=== PATIENT | female | born 1975 | race Caucasian/White ===

== ENCOUNTER 2017-05-24 17:40 | Emergency (ER) | payer OTHER, MEDICAID ==
[~2017-05-24] VITALS: Ht 170.2 cm; Wt 82.3 kg
[2017-05-24 17:43] VITALS: BP 120/78
[2017-05-24] MEDS ORDERED: DEXAMETHASONE 4 MG TABLET ONE (18:26)
== END 2017-05-24 19:38 | disposition home or self-care (01) ==
LOC: ED 19:32
DX: S83.411A Sprain of medial collateral ligament of right knee, initial encounter (principal); E11.9 Type 2 diabetes mellitus without complications; W17.89XA Other fall from one level to another, initial encounter; Y93.89 Activity, other specified; Y92.89 Other specified places as the place of occurrence of the external cause; Y99.8 Other external cause status
CPT/HCPCS: 99284

== ENCOUNTER 2017-12-05 09:31 | Emergency (ER) | payer MEDICAID, OTHER ==
[~2017-12-05] VITALS: Ht 170.2 cm; Wt 89.8 kg
[2017-12-05 10:38] VITALS: BP 124/91
[2017-12-05] MEDS ORDERED: LEVO175T36 PO (10:38)
[2017-12-05] MEDS ORDERED: METF500T4 PO (10:38)
[2017-12-05] MEDS ORDERED: SODIUM CHLORIDE FLUSH 10ML SYR IVF ONE (11:00)
[2017-12-05] MEDS ORDERED: ASPIRIN 81 MG TABLET CHEW PO ONE (11:00)
[2017-12-05] MEDS ORDERED: ASPIRIN 81 MG TABLET CHEW ONE (11:06)
[2017-12-05 11:08] LABS: BASOPHILS # (AUTO) 0.07 x10^3/uL (0-0.1); BASOPHILS % (AUTO) 1 % (0-1); EOSINOPHILS % (AUTO) 1 % (1-7); LYMPHOCYTES # (AUTO) 1.88 x10^3/uL (1-3.4); LYMPHOCYTES % (AUTO) 27 % (22-44); MD NO; MEAN CORPUSCULAR HEMOGLOBIN 31.8 pg (27.0-34.8); MEAN CORPUSCULAR HGB CONC 34.2 g/dL (32.4-35.8); MEAN CORPUSCULAR VOLUME 93.1 fL (80-100); MEAN PLATELET VOLUME 8.5 fL (7.4-10.4); MONOCYTES # (AUTO) 0.45 x10^3/uL (0.2-0.8); MONOCYTES % (AUTO) 6 % (2-9); NEUTROPHILS # (AUTO) 4.51 x10^3/uL (1.8-6.8); NEUTROPHILS % (AUTO) 64 % (42-75); PLATELET COUNT 258 x10^3/uL (130-400); RED CELL DISTRIBUTION WIDTH 12.5 % (9.6-15.2)
[2017-12-05 11:20] LABS: ALANINE AMINOTRANSFERASE 49 U/L (12-78); ALBUMIN 3.8 g/dL (3.4-5.0); ANION GAP 7 mmol/L (5-15); CALCIUM 8.2 mg/dL (8.5-10.1); CHLORIDE 106 mmol/L (98-107)
[2017-12-05 11:25] LABS: ALKALINE PHOSPHATASE 54 U/L (45-117); BILIRUBIN,TOTAL 0.5 mg/dL (0.2-1.0); TOTAL PROTEIN 7.2 g/dL (6.4-8.2); TROPONIN I < 0.015 ng/mL (0.000-0.045)
[2017-12-05] MEDS ORDERED: LORazepam 2 MG/ML, 1ML IVPush ONE (13:00)
== END 2017-12-05 13:16 | disposition home or self-care (01) ==
LOC: ED 12:22
DX: R07.89 Other chest pain (principal); G44.219 Episodic tension-type headache, not intractable; E11.9 Type 2 diabetes mellitus without complications; Z82.49 Family history of ischemic heart disease and other diseases of the circulatory system; Z98.84 Bariatric surgery status
CPT/HCPCS: 36415; 70450; 71045; 80053; 83690; 84484; 84703; 85025; 85379; 93005; 99285

== ENCOUNTER → 2018-07-31 | Outpatient (CLI) | payer OTHER ==
[~2018-07-31] MED LIST: ATOR20TA9 PO; CYAN10002 INJ; LEVO175T36 PO; LEVO175T5 PO; LIRA0.6P INJ; METF500T17 PO; PHEN15CA2 PO; VITA1TAB86 PO
[2018-07-31 09:25] LABS: ALANINE AMINOTRANSFERASE 84 U/L (12-78); ALBUMIN 3.8 g/dL (3.4-5.0); ANION GAP 5 mmol/L (5-15); CALCIUM 8.4 mg/dL (8.5-10.1); CHLORIDE 105 mmol/L (98-107); CREATININE 0.84 mg/dL (0.55-1.02)
[2018-07-31 09:28] LABS: ALKALINE PHOSPHATASE 68 U/L (45-117); BILIRUBIN,TOTAL 0.4 mg/dL (0.2-1.0); TOTAL PROTEIN 7.1 g/dL (6.4-8.2)
== END | disposition home or self-care (01) ==
LOC: STAR 08:07
PROVIDERS: ATTEND Surgery
DX: Z01.818 Encounter for other preprocedural examination (principal)
CPT/HCPCS: 36415; 80053; 93005

== ENCOUNTER 2018-08-05 06:55 | Day surgery (SDC) | payer OTHER ==
[~2018-08-05] VITALS: Ht 170.2 cm; Wt 84.0 kg
[~2018-08-05 06:55] MED LIST changes: +BUPIVACAINE/PF-EPI 0.5% 1:200K ONE
[2018-08-05] MEDS ORDERED: LACTATED RINGERS 1,000 ML IV SCH (07:10)
[2018-08-05 07:25] VITALS: BP 120/80
[2018-08-05] MEDS ORDERED: GABAPENTIN 300 MG CAPSULE PO ONE (07:30)
[2018-08-05] MEDS ORDERED: ACETAMINOPHEN 500 MG TABLET PO ONE (07:30)
[2018-08-05] MEDS ORDERED: ONDANSETRON ODT 8 MG PO ONE (07:30)
[2018-08-05 07:55] LABS: HCG UR SG 1.027 (1.003-1.030)
[2018-08-05] MEDS ORDERED: LIDOCAINE-MPF 2% ,5ML ONE (08:29)
[2018-08-05] MEDS ORDERED: PROPOFOL 10 MG/ML, 20ML ONE (08:29)
[2018-08-05] MEDS ORDERED: FENTANYL PF 100 MCG/2ML ONE ×3 (08:29→11:12)
[2018-08-05] MEDS ORDERED: DEXAMETHASONE 4 MG/ML, 1ML ONE ×2 (08:29)
[2018-08-05] MEDS ORDERED: MIDAZOLAM 1 MG/ML, 2ML ONE (08:29)
[2018-08-05] MEDS ORDERED: SUCCINYLCHOLINE 20 MG/ML, 10ML ONE (08:29)
[2018-08-05] MEDS ORDERED: MORPHINE SULFATE 4 MG/ML, 1ML IVPush PRN (09:30)
[2018-08-05] MEDS ORDERED: HYDROmorphone 1 MG/ML, 1ML IV PRN (09:30)
[2018-08-05] MEDS ORDERED: MIDAZOLAM 1 MG/ML, 2ML IV PRN (09:30)
[2018-08-05] MEDS ORDERED: LABETALOL 5MG/ML, 20ML IV PRN (09:30)
[2018-08-05] MEDS ORDERED: ALBUTEROL SULFATE 2.5 MG/3 ML NPPB PRN (09:30)
[2018-08-05] MEDS ORDERED: OXYcodone 5 MG/5 ML ORAL.SOL UDC PO PRN (09:30)
[2018-08-05] MEDS ORDERED: LORazepam 2 MG/ML, 1ML IVPush PRN (09:30)
[2018-08-05] MEDS ORDERED: METOPROLOL 1 MG/ML, 5ML IV PRN (09:30)
[2018-08-05] MEDS ORDERED: hydrALAzine 20 MG/ML, 1ML IV PRN (09:30)
[2018-08-05] MEDS ORDERED: MEPERIDINE/PF 25MG/0.5ML IVPush PRN (09:30)
[2018-08-05] MEDS ORDERED: OXYcodone 5 MG/5 ML ORAL.SOL UDC ONE (11:03)
[2018-08-05] MEDS ORDERED: LORazepam 2 MG/ML, 1ML ONE (11:03)
[2018-08-05] MEDS: FENTANYL PF 100 MCG/2ML IV PRN ×2 (11:15→11:55)
== END 2018-08-05 14:30 | disposition home or self-care (01) ==
LOC: OUT 06:55
PROVIDERS: ATTEND Surgery
DX: D34 Benign neoplasm of thyroid gland (principal); E04.1 Nontoxic single thyroid nodule; J45.909 Unspecified asthma, uncomplicated; E11.9 Type 2 diabetes mellitus without complications; E78.00 Pure hypercholesterolemia, unspecified; E03.9 Hypothyroidism, unspecified; E66.01 Morbid (severe) obesity due to excess calories; Z68.29 Body mass index [BMI] 29.0-29.9, adult; Z90.49 Acquired absence of other specified parts of digestive tract; Z98.890 Other specified postprocedural states; Z72.89 Other problems related to lifestyle
CPT/HCPCS: 60220; 81025; 88305; 88307; 88331; C1760; J0330; J1100; J2060; J2250; J2704; J3010; J3490; J7120; Q0162